=== PATIENT | male | born 1935 | race Caucasian/White ===

== ENCOUNTER 2016-06-11 05:22 | Inpatient (IN) | payer MEDICARE, BC ==
[2016-06-11 05:56] LABS: BASOPHILS % (AUTO) 1 % (0-3); EOSINOPHILS % (AUTO) 1 % (0-9); HEMATOCRIT 43 % (39-53); MEAN CORPUSCULAR HGB CONC 34.5 gm/dl (32.0-36.0); MEAN CORPUSCULAR VOLUME 88 fL (80-100); MONOCYTES % (AUTO) 7.6 % (0-12); NEUTROPHILS % (AUTO) 83.2 % (37-80)
[2016-06-11 06:00] LABS: CALCIUM 8.8 mg/dl (8.5-10.1); POTASSIUM 4.2 mMol/L (3.5-5.1)
[2016-06-11] MEDS ORDERED: CEFTRIAXONE 1 GM PDS 1 GM in SODIUM CHLORIDE 0.9% 100 ML 100 ML IV ONE (07:08)
[2016-06-11] MEDS ORDERED: SOLUMEDROL 125 MG/2 ML 125 MG/2 ML PDS IV ONE (07:08)
[2016-06-11] MEDS ORDERED: DEXTROMETHORPHAN PO PRN (07:09)
[2016-06-11] MEDS ORDERED: [UNRECOGNIZED DRUG - OTHER] PO PRN (07:09)
[2016-06-11] MEDS ORDERED: GUAIFENESIN PO PRN (07:09)
[2016-06-11] MEDS ORDERED: CEFTRIAXONE 1 GM (PREMIX) 1 GM/50 ML SOL IV ONE ×2 (07:14→07:26)
[2016-06-11] MEDS ORDERED: SOLUMEDROL 125 MG/2 ML 125 MG/2 ML PDS ONE (07:26)
[2016-06-11] MEDS ORDERED: TRAMADOL HYDROCHLORIDE 50 MG TAB PO PRN (08:39)
[2016-06-11] MEDS ORDERED: FUROSEMIDE 20 MG TAB PO SCH (09:00)
[2016-06-11] MEDS ORDERED: CARBOXYMETHYLCELLULOSE SODIUM OP SCH (09:00)
[2016-06-11] MEDS ORDERED: Non-Formulary Medication MISC (Carbidopa/Levodopa 25/100 2 TAB) PO SCH (09:00)
[2016-06-11] MEDS ORDERED: DM/GUAIFENESIN SYRUP 10 ML SYRP PO PRN (10:07)
[2016-06-11] MEDS: PEG-400/PROPYLENE GLYCOL 1 DROP SOL OP SCH ×2 (11:19→20:39)
[2016-06-11] MEDS: ALBUTEROL/IPRATROPIUM 1 VIAL SOL NEB SCH ×4 (11:22→20:40)
[2016-06-11] MEDS: LOPERAMIDE HYDROCHLORIDE 2 MG CAP PO SCH (11:30)
[2016-06-11] MEDS: ENOXAPARIN 30 MG SOL SC SCH (11:31)
[2016-06-11] MEDS: FUROSEMIDE 80 MG TAB PO SCH (11:31)
[2016-06-11] MEDS: ACETAMINOPHEN 325 MG PO SCH ×2 (11:32→20:39)
[2016-06-11] MEDS ORDERED: SOLUMEDROL 125 MG/2 ML 125 MG/2 ML PDS IV SCH (13:00)
[2016-06-11] MEDS: CHLORPHENIRAMINE MALEATE PO SCH (13:16)
[2016-06-11] MEDS: CARBIDOPA/LEVODOPA 25/100 TAB PO SCH ×2 (13:25→20:39)
[2016-06-11] MEDS: SOLUMEDROL 125 MG/2 ML 125 MG/2 ML PDS IV SCH ×2 (15:15→23:29)
[2016-06-11] MEDS: FUROSEMIDE 40 MG TAB PO SCH (17:59)
[2016-06-11] MEDS ORDERED: LABETALOL HYDROCHLORIDE 5 MG/ML SOL IV PRN ×2 (18:39→20:28)
[2016-06-11] MEDS ORDERED: LISINOPRIL 20 MG TAB ONE (20:35)
[2016-06-11] MEDS: LISINOPRIL 20 MG TAB PO SCH (20:37)
[2016-06-11] MEDS: TAMSULOSIN HYDROCHLORIDE 0.4 MG CAP PO SCH (20:39)
[2016-06-11] MEDS: SERTRALINE HYDROCHLORIDE 50 MG TAB PO SCH (20:40)
[2016-06-11] MEDS: SODIUM CHLORIDE 0.9% FLUSH 10 ML SOL IV PRN (23:31)
[2016-06-12] MEDS: CLOTRIMAZOLE 1% CREAM TOP PRN (02:16)
[2016-06-12] MEDS: SODIUM CHLORIDE 0.9% FLUSH 10 ML SOL IV PRN ×2 (05:57→22:10)
[2016-06-12] MEDS: SOLUMEDROL 125 MG/2 ML 125 MG/2 ML PDS IV SCH ×3 (06:07→22:09)
[2016-06-12] MEDS: ALBUTEROL NEB SOL 2.5MG/3ML 1 VIAL SOL NEB PRN (06:12)
[2016-06-12] MEDS: FUROSEMIDE 80 MG TAB PO SCH ×2 (06:26→09:49)
[2016-06-12 07:41] LABS: BASOPHILS % (AUTO) 0 % (0-3); EOSINOPHILS % (AUTO) 0 % (0-9); HEMATOCRIT 42 % (39-53); MEAN CORPUSCULAR VOLUME 90 fL (80-100); MONOCYTES % (AUTO) 5.4 % (0-12); NEUTROPHILS % (AUTO) 91.8 % (37-80)
[2016-06-12 07:45] LABS: CALCIUM 8.6 mg/dl (8.5-10.1)
[2016-06-12] MEDS: ALBUTEROL/IPRATROPIUM 1 VIAL SOL NEB SCH ×4 (08:18→21:19)
[2016-06-12] MEDS ORDERED: LISINOPRIL 20 MG TAB PO SCH (09:00)
[2016-06-12] MEDS: CARBIDOPA/LEVODOPA 25/100 TAB PO SCH ×3 (09:48→21:16)
[2016-06-12] MEDS: ENOXAPARIN 30 MG SOL SC SCH (09:49)
[2016-06-12] MEDS: CHLORPHENIRAMINE MALEATE PO SCH (09:50)
[2016-06-12] MEDS: PEG-400/PROPYLENE GLYCOL 1 DROP SOL OP SCH ×2 (09:50→21:18)
[2016-06-12] MEDS: ACETAMINOPHEN 325 MG PO SCH ×2 (09:50→21:18)
[2016-06-12] MEDS ORDERED: LISINOPRIL 20 MG TAB ONE (09:55)
[2016-06-12] MEDS: LISINOPRIL 20 MG TAB PO SCH (09:56)
[2016-06-12] MEDS: FUROSEMIDE 40 MG TAB PO SCH (17:32)
[2016-06-12] MEDS: LISINOPRIL 5 MG TAB PO SCH (21:16)
[2016-06-12] MEDS: TAMSULOSIN HYDROCHLORIDE 0.4 MG CAP PO SCH (21:17)
[2016-06-12] MEDS: SERTRALINE HYDROCHLORIDE 50 MG TAB PO SCH (21:18)
[2016-06-13] MEDS: CLOTRIMAZOLE 1% CREAM TOP PRN (01:13)
[2016-06-13] MEDS: ALBUTEROL NEB SOL 2.5MG/3ML 1 VIAL SOL NEB PRN ×2 (01:20→06:04)
[2016-06-13] MEDS: SOLUMEDROL 125 MG/2 ML 125 MG/2 ML PDS IV SCH ×3 (06:10→22:42)
[2016-06-13] MEDS: SODIUM CHLORIDE 0.9% FLUSH 10 ML SOL IV PRN ×4 (06:11→20:19)
[2016-06-13 07:32] LABS: BASOPHILS % (AUTO) 0 % (0-3); CALCIUM 8.6 mg/dl (8.5-10.1); EOSINOPHILS % (AUTO) 0 % (0-9); HEMATOCRIT 44 % (39-53); MEAN CORPUSCULAR HGB CONC 34.6 gm/dl (32.0-36.0); MEAN CORPUSCULAR VOLUME 91 fL (80-100); MONOCYTES % (AUTO) 7.1 % (0-12); NEUTROPHILS % (AUTO) 88.3 % (37-80); POTASSIUM 4.2 mMol/L (3.5-5.1)
[2016-06-13] MEDS ORDERED: PIPERACILLIN/TAZOBACT 3.375 GM PDS IV ONE ×2 (08:17→14:43)
[2016-06-13] MEDS: ENOXAPARIN 30 MG SOL SC SCH (08:32)
[2016-06-13] MEDS: PIPERACILLIN/TAZOBACT 3.375 GM 3.375 GM in SODIUM CHLORIDE 0.9% 100 ML 100 ML IV SCH ×3 (08:32→20:15)
[2016-06-13] MEDS: LOPERAMIDE HYDROCHLORIDE 2 MG CAP PO SCH (08:57)
[2016-06-13] MEDS: CHLORPHENIRAMINE MALEATE PO SCH (09:03)
[2016-06-13] MEDS: FUROSEMIDE 80 MG TAB PO SCH (09:05)
[2016-06-13] MEDS: ACETAMINOPHEN 325 MG PO SCH ×2 (09:07→20:09)
[2016-06-13] MEDS: ALBUTEROL/IPRATROPIUM 1 VIAL SOL NEB SCH ×4 (09:13→20:07)
[2016-06-13] MEDS: CARBIDOPA/LEVODOPA 25/100 TAB PO SCH ×3 (09:18→20:10)
[2016-06-13] MEDS: PEG-400/PROPYLENE GLYCOL 1 DROP SOL OP SCH ×2 (09:50→20:13)
[2016-06-13] MEDS ORDERED: SODIUM CHLORIDE 0.9% 100 ML 100 ML IV ONE (14:43)
[2016-06-13] MEDS: FUROSEMIDE 40 MG TAB PO SCH (15:53)
[2016-06-13] MEDS ORDERED: NITROGLYCERIN 0.4 MG TAB SL PRN (19:53)
[2016-06-13] MEDS: TAMSULOSIN HYDROCHLORIDE 0.4 MG CAP PO SCH (20:13)
[2016-06-13] MEDS: SERTRALINE HYDROCHLORIDE 50 MG TAB PO SCH (20:14)
[2016-06-13] MEDS: LISINOPRIL 5 MG TAB PO SCH (20:14)
[2016-06-13] MEDS ORDERED: HEPARIN PREMIX 25,000 U/250 ML SOL IV PRN (20:46)
[2016-06-13] MEDS ORDERED: LACTATED RINGERS 1,000 ML IV ONE (21:08)
[2016-06-13] MEDS: AZITHROMYCIN 250 MG TAB PO SCH ×2 (22:42→23:47)
[2016-06-13] MEDS ORDERED: LACTATED RINGERS 1,000 ML IV SCH ×2 (22:45→23:44)
[2016-06-13] MEDS ORDERED: HEPARIN SODIUM 5000 U/ML SOL IV ONE (23:45)
[2016-06-13] MEDS ORDERED: AZITHROMYCIN 500 MG PDS 500 MG in SODIUM CHLORIDE 0.9% 500 ML 500 ML IV SCH (23:45)
[2016-06-13] MEDS ORDERED: CLOPIDOGREL 75 MG TAB PO SCH (23:45)
[2016-06-14] MEDS ORDERED: SODIUM CHLORIDE 0.9% 500 ML 500 ML IV ONE (00:05)
[2016-06-14] MEDS ORDERED: AZITHROMYCIN 500 MG PDS IV ONE (00:05)
[2016-06-14] MEDS ORDERED: AZITHROMYCIN 500 MG PDS 500 MG in SODIUM CHLORIDE 0.9% 250 ML 250 ML IV SCH (00:15)
[2016-06-14] MEDS: SODIUM CHLORIDE 0.9% FLUSH 10 ML SOL IV PRN ×3 (00:26→06:28)
[2016-06-14] MEDS: PIPERACILLIN/TAZOBACT 3.375 GM 3.375 GM in SODIUM CHLORIDE 0.9% 100 ML 100 ML IV SCH (01:55)
[2016-06-14] MEDS: LACTATED RINGERS 1,000 ML IV SCH ×2 (02:00→07:30)
[2016-06-14] MEDS: SOLUMEDROL 125 MG/2 ML 125 MG/2 ML PDS IV SCH (06:24)
[2016-06-14 07:20] LABS: BASOPHILS % (AUTO) 0 % (0-3); EOSINOPHILS % (AUTO) 0 % (0-9); HEMATOCRIT 39 % (39-53); MEAN CORPUSCULAR HGB CONC 31.1 gm/dl (32.0-36.0); MEAN CORPUSCULAR VOLUME 96 fL (80-100); MONOCYTES % (AUTO) 6.9 % (0-12); NEUTROPHILS % (AUTO) 89.6 % (37-80)
[2016-06-14 07:25] LABS: CALCIUM 7.7 mg/dl (8.5-10.1); POTASSIUM 4.4 mMol/L (3.5-5.1)
[2016-06-14 07:54] VITALS: PULSE 80; RESP 12; TEMP 96.9; O2SAT 96
[2016-06-14 08:00] VITALS: BP 97/57
[2016-06-14] MEDS ORDERED: MORPHINE SULFATE 20 MG/1 ML SOL PO PRN (08:03)
[2016-06-14] MEDS ORDERED: LORAZEPAM 0.5 MG TAB PO PRN (08:06)
[2016-06-14] MEDS ORDERED: SCOPOLAMINE 1.5MG PATCH TD SCH (08:15)
[2016-06-14] MEDS: ACETAMINOPHEN 325 MG PO SCH (09:50)
[2016-06-14] MEDS: CARBIDOPA/LEVODOPA 25/100 TAB PO SCH (09:51)
[2016-06-14] MEDS: PEG-400/PROPYLENE GLYCOL 1 DROP SOL OP SCH (10:05)
== END 2016-06-14 15:05 | disposition hospice, inpatient (51) | DRG 152 ==
LOC: ED 05:22 → ACUTE CARE 08:15 → UNDOADMOB 08:15 → ACUTE CARE 09:30 → OBSVTOIN 06-12 11:20
PROVIDERS: ADMIT Family Medicine; ATTEND Family Medicine
DX: J06.9 Acute upper respiratory infection, unspecified (principal); R06.02 Shortness of breath; R07.89 Other chest pain; I21.4 Non-ST elevation (NSTEMI) myocardial infarction; G20 Parkinson's disease; R09.02 Hypoxemia; Z87.891 Personal history of nicotine dependence; R06.81 Apnea, not elsewhere classified
CPT/HCPCS: 36415; 71010; 80048; 83880; 84484; 85025; 85378; 85610; 85730; 87804; 93005; 93012; 94150; 94640; 94664; 94669; 94760; 96365; 96374; 99070; 99218; 99233; 99285; J0456; J0696; J1644; J2543; J2930; J7603; J7620; J1650; J2270